=== PATIENT | male | born 2000 | race Caucasian/White ===

== ENCOUNTER 2025-01-17 12:26 | Emergency (ER) | payer OTHER, SELFPAY ==
--- OUTSIDE RECORDS SUMMARY | 2025-01-17 12:38 | XMS_ITS | Continuity of Care Document ---
Author Organization [facility] Address [address] Guzman [address] [place] [phone] Phone Care Team Providers Care Identifier Horse Name Role Phone Tristen OD, Farshad Unavailable Unavailable Allergies, Adverse Reactions, Alerts Substance Reaction Status Criticality No Known Allergies Active No Inform ation Medications Medication Instructions Dosage Effective Dates (start - stop) Status Comments timolol maleate 0.5 % once daily eye drops instill 1 drop by ophthalmic route every day into right eye - No Longer Active prednisolone acetate 1 % eye drops,suspension instill 1 drop by ophthalmic route 4 times every day into right eye x 1week, then TID x 1 week, then BID x 1 week, then QD 1 week then STOP - No Longer Active prednisolone acetate 1 % eye drops,suspension instill 1 drop by ophthalmic route BID into the right eye - No Longer Active Procedures Procedure Date Special Eye Evaluation Office/outpatient Visit, Est Special Eye Evaluation Office/outpatient Visit, Est Special Eye Evaluation Office/outpatient Visit, Est Fundus Photography W/ Report Eye Exam, New Patient Advance Directives Directive Yes / No Effective Date File Name No Information Encounters Encounter Description Practice Location Reason(s) For Visit Diagnoses Date Provider Providers Copied on Encounter Office/outpa tient Visit, [facility], [id number] [place] [address] [address], [place], [place], [id number], [place] tel:[phone] SEC Jareth SORTO Professional 1.5 month f/u and gonio (chief complaint) Hyphema of right eyeIritis of right eye Usman-2 0 Tristen OD Farshad. [address] [facility] [facility], [place], [address], [place]. tel:[phone] Specialist : Elías Sanders MD, [address] [place], [address] . [phone] erring Provider: Reji Dozier OD, [facility] [address] [place], [address]. tel:[phone] Office/outpa tient Visit, [facility], [address] [place] [address] [address], [place], [place], [id number], [place] [phone] SEC Jareth SORTO Professional Follow up visit (chief complaint) Hyphema of right eyeIritis of right eye Dec-0 9 Tristen OD Farshad. [address] [facility], [address] [place] [address], [place], [address], [place]. tel:[phone] Referring Provider: Reji Dozier OD, [facility] [address] [place], [address]. tel:[phone] Office/outpa tient Visit, [facility], [address] [place] [address] [address], [place], [place], [id number], [place] [phone] SEC Jareth SORTO Professional WIE (chief complaint) Hyphema of right eyeIritis of right eye May-2 9 Tristen OD Farshad. [address] [facility] [address] [facility], [place], [address], [place]. tel:[phone] Referring Provider: Reji Dozier OD, [facility] [address] [place], [address]. tel:[phone] [facility], [address], [place], [place], [id number], [place] tel:[phone] SEC Jareth SORTO Professional WIE (chief complaint) Hyphema of right eyeIritis of right eyeCommotio retinae of right eye, initial encounterRetina l hemorrhage of right eye 0 9 Tristen OD Farshad. [address] [facility], [address], [place], [address], [place]. tel: [phone] Referring Provider: Reji Dozier OD, [facility] [address] [facility], [place], [address]. tel:[phone] Family History Family Member Type Diagnosis Age At Onset Maternal grandmother Problem (finding) Diabetes mellit us Payers Payer name Insurance type Covered republican ID Authoriza tion(s) [facility] Commercial CI [id number] Social History Type Description Quantity Date Captured Comments Alcohol Use Details Unknown Caffeine Use Details Unknown Tobacco Use Status No Information Smoking Status No Information Sex Male Chief Complaint And Reason For Visit From encounter dated '08/10/2019 14:00'. 1.5 month f/u and gonio (chief complaint). Description: The 19 year 5 month old male presents for evaluation of 1.5 month f/u and gonio in the right eye. Hx of Hyphema OD and Iritis OD. Patient states the right eye is better. Patient states he ran out of both gtts Peter and Pred a couple of weeks ago. Patient has an appointment with Dr. Sanders on 08/22/19. Reason For Referral Reason For Referral No Information History Of Present Illness Encounter Date Complaint History Of Prese nt Illness 1.5 month f/u and gonio The 19 y ear 5 month old male presents for evaluation of 1.5 month f/u and gonio in the right eye. Hx of Hyphema OD and Iritis OD. Patient states the right eye is better. Patient states he ran out of both gtts Peter and Pred a couple of weeks ago. Patient has an appointment with Dr. Sanders on 08/22/19. Follow up visit The 19 year 3 mo nth old male presents for a 10 day follow up from blunt trauma Hyphema OD. Patient states OD is doing good. Patient is using Pred tid OD and Dr. Sanders added Timolol bid OD. WIE The 19 year 3 mo nth old male presents for a WIE OD. Patient was seen yesterday. Patient has Hyphema OD with Iritis. Patient states last night he noticed more fresh blood and OD was hurting a little more. Patient is using Pred qid OD and a unknown pain drop. WIE The 19 year 3 mo nth old male presents for evaluation of WIE in the right eye. Patient states he was hit in the right eye yesterday with a soccer ball. Patient states eye was very bloody" and VA was cloudy but to today the VA and bloodiness is much better. Patient has glasses but don'r wear them. Patient denies any flashes of light or floaters. Patient has a hand coke drawer Dr. Hinton in [place] could not find in our system. (add a doc form sent to [facility]) Functional Status Date Functional Assessmen t No Information Medications Administered Medication Instructions Dosage Effective Dates (start - stop) Status Comments timolol maleate 0.5 % once daily eye drops instill 1 drop by ophthalmic route every day into right eye - No Longer Active Instructions Date Instruction Additional Infor valerio Impression/Plan Impression/Plan Impression/Plan Impression/Plan Assessments Type Assessment Date assessment Hyphema of right eye assessment Iritis of right eye Patient Care Teams Name Effective Dates (start - stop) Status Members No Information
[2025-01-17 12:41] VITALS: BP 132/68; PULSE 68; RESP 18; TEMP 36.8; O2SAT 100
--- NOTE | 2025-01-17 13:46 | ED_ITS ---
HPI - General Adult General Chief complaint: Dental/Oral Stated complaint: Tooth Pain Source: patient Mode of arrival: ambulatory Limitations: no limitations History of Present Illness HPI narrative: Patient presents for evaluation of bilateral upper dental pain. Pain has been bothersome intermittently for a year. Pain has become worse in the last week. He does not provide me with a descriptive quality or numerical rating the pain. He took ibuprofen earlier today which seemed to help. He denies any fever, chills, nausea, or vomiting. He does not smoke. Related Data Allergies Allergy/AdvReac Type Severity Reaction Status Date / Time No Known Allergies Allergy Verified 01/17/25 13:01 Review of Systems Review of Systems: CONSTITUTIONAL: Denies fever, chills, or sweats. EYES: Denies visual changes, redness, or discharge. ENT: Reports bilateral upper dental pain. Denies rhinorrhea, congestion, sore throat CARDIOVASCULAR: Denies chest pain, palpitations, or edema. RESPIRATORY: Denies cough or dyspnea. GASTROINTESTINAL: Denies abdominal pain, nausea, vomiting, or diarrhea. GENITOURINARY: Denies dysuria or hematuria. SKIN: Denies rash or itching. MUSCULOSKELETAL: Denies back pain, joint pain, or myalgia. NEUROLOGIC: Denies headache, numbness, dizziness, or weakness. PSYCHIATRIC: Denies anxiety or depression. PMFSH Past Medical History Medical History No pertinent past medical history Surgical History Surgical History No pertinent past surgical history Family History Family History Mother Family history non-contributory Social History Social History Smoking status: Never smoker Gender identity (if verbalized by the patient): Male Spiritual care concerns: No Exam Narrative: GENERAL: Well-appearing, well-nourished, and in no acute distress. HEAD: Normocephalic, atraumatic. EYES: PERRLA and EOMI. ENT: Nares clear, no rhinorrhea or epistaxis. Mucous membranes moist. Oropharynx without tonsillar hypertrophy exudate or other lesions. Tooth #1 and #16 are fractured. There is no visible or palpable abscess. Bilateral TMs pearly zhang nonbulging NECK: Supple. No adenopathy or masses. No carotid bruits or JVD CHEST: Clear to auscultation. No respiratory distress. No wheezes rales or rhonchi HEART: Regular rate and rhythm. No murmur heard. Normal peripheral pulses. ABDOMEN: Soft, nontender, nondistended, normal active bowel sounds. EXTREMITIES: Normal range of motion. No edema. SKIN: Warm, dry, no rash. NEURO: No focal deficits. Alert and oriented x3. PSYCH: Normal mood and affect. Course Course Emergency Course: This is a 25-year-old male who presented for bilateral upper dental pain. He has evidence of fractures without any visible abscess. Will cover with penicillin. Ibuprofen is helping with pain. He should follow-up with his dentist and go to the emergency department for worsening symptoms. Patient in agreement with plan of care. Level of Care: Express Care Visit Vital Signs Vital signs: Vital Signs Temperature 36.8 C 01/17/25 12:41 Pulse Rate 01/17/25 12:41 Respiratory Rate 01/17/25 12:41 Blood Pressure 132/68 01/17/25 12:41 Pulse Oximetry 01/17/25 12:41 Oxygen Delivery Room Air 01/17/25 12:41 Temperature 36.8 C 01/17/25 12:41 Pulse Rate 01/17/25 12:41 Respiratory Rate 18 01/17/25 12:41 Blood Pressure 132/68 01/17/25 12:41 Pulse Oximetry 01/17/25 12:41 Oxygen Delivery Room Air 01/17/25 12:41 Medical Decision Making Vital Signs Vital Signs: Vital Signs Temperature 36.8 C 01/17/25 12:41 Pulse Rate 01/17/25 12:41 Respiratory Rate 01/17/25 12:41 Blood Pressure 132/68 01/17/25 12:41 Pulse Oximetry 01/17/25 12:41 Oxygen Delivery Room Air 01/17/25 12:41 Temperature 36.8 C 01/17/25 12:41 Pulse Rate 01/17/25 12:41 Respiratory Rate 01/17/25 12:41 Blood Pressure 132/68 01/17/25 12:41 Pulse Oximetry 100 01/17/25 12:41 Oxygen Delivery Room Air 01/17/25 12:41 Discharge Plan Discharge Clinical Impression: Fracture of tooth Patient Disposition: Home Condition: Stable Instructions: Antibiotic Form, Toothache (ED) Patient Language: Slovenian Prescriptions: New penicillin V potassium 500 mg tablet 500 mg PO Q6H 10 Days Qty: 40 0RF Follow-up/Referrals: Pavel Dean [Other] Time of Disposition: 13:02
== END 2025-01-17 13:05 | disposition home or self-care (01) ==
PROVIDERS: Emergency Provider Nurse Practitioner
DX: S02.5XXA Fracture of tooth (traumatic), initial encounter for closed fracture (principal); X58.XXXA Exposure to other specified factors, initial encounter
CPT/HCPCS: 99203; G0463